=== PATIENT | male | born 1955 | race Caucasian/White ===

== ENCOUNTER 2018-01-06 12:48 | Inpatient (IN) | payer OTHER ==
[~2018-01-06] VITALS: Ht 170.2 cm; Wt 87.4 kg
[~2018-01-06 12:48] MED LIST: ASPIRIN81 M2 PO; FENOFIBRATE160 M1 PO; GABAPENTIN800 MG PO; LISINOPRIL40 MG PO; LOPRESSOR50 MG PO; LOW DOSE ASPIRI81 M1 PO; NORVASC5 MG PO; PRAVACHOL80 MG PO; PRILOSEC20 MG PO; ZITHROMAX Z-PA250 MG PO
[2018-01-06] MEDS ORDERED: PROAIR HFA8.5 GM IH (13:11)
[2018-01-06] MEDS ORDERED: GABAPENTIN300 MG PO (13:11)
[2018-01-06 14:47] LABS: HEMATOCRIT 32.8 % (38.0-50.0); HEMOGLOBIN 10.8 G/DL (12.5-16.6); MCH 27.9 PG (29.0-34.0); MCHC 32.9 G/DL (30.0-36.0); MCV 84.8 FL (86-99); PLATELET COUNT 282 K/uL (156-360); RBC DIS.WIDTH-CV 14.6 % (11.8-14.6); RBC DIS.WIDTH-SD 44.9 % (39-53); RED BLOOD COUNT 3.87 M/uL (4.00-5.50); WHITE BLOOD COUNT 16.6 K/uL (4.1-10.2)
[2018-01-06 14:56] LABS: CHLORIDE 106 mEq/L (99-109); POTASSIUM 3.3 mEq/L (3.7-5.4); SODIUM 140 mEq/L (136-147)
[2018-01-06 14:58] LABS: GLUCOSE 82 mg/dL (70-99); TOTAL PROTEIN 6.7 g/dL (6.4-8.3)
[2018-01-06 15:00] LABS: TOTAL BILIRUBIN 0.5 mg/dL (0.0-1.0)
[2018-01-06 15:02] LABS: ALKALINE PHOSPHATASE 67 IU/L (3-129); CREATININE 0.9 mg/dL (0.6-1.3); GFR ESTIMATE (CALCULATED) > 59 mL/min/ (58.99-99999)
[2018-01-06 15:03] LABS: UREA NITROGEN (BUN) 13 mg/dL (9-23)
[2018-01-06 15:04] LABS: AST (GOT) 8 IU/L (2-34)
[2018-01-06 15:05] LABS: ALT (GPT) 10 IU/L (3-49)
[2018-01-06 15:08] LABS: TROP-I INTERPRETATION NEGATIVE; TROPONIN-I < 0.01 ng/mL (0.0-0.30)
[2018-01-06] MEDS ORDERED: IBUPROFEN800 MG PO (19:52)
[2018-01-06] MEDS ORDERED: PERCOCET 10/1 TABLET PO (19:52)
[2018-01-06] MEDS ORDERED: REQUIP0.5 MG PO (19:52)
[2018-01-06] MEDS ORDERED: DESYREL 150 MG150 MG PO (19:52)
[2018-01-06] MEDS ORDERED: CELEBREX200 MG PO (19:52)
[2018-01-06] MEDS ORDERED: TRAMADOL HCL50 MG PO (19:52)
[2018-01-06 21:15] VITALS: BP 159/93
[2018-01-06 22:38] LABS: APPEARANCE CLEAR ((CLEAR)); BILIRUBIN NEGATIVE; BLOOD NEGATIVE; COLOR STRAW ((YELLOW)); GLUCOSE (STRIP) NEGATIVE; KETONES NEGATIVE; LEUKOCYTES NEGATIVE; NITRITE NEGATIVE; PROTEIN (STRIP) NEGATIVE; SPECIFIC GRAVITY 1.012 (1.000-1.030); UCUL ADDED? NO; UROBILINOGEN 0.2 MG/DL (0.2-1.0)
[2018-01-07 00:02] VITALS: BP 139/81
[2018-01-07 03:42] VITALS: BP 150/82
[2018-01-07 06:05] LABS: HEMATOCRIT 33.7 % (38.0-50.0); HEMOGLOBIN 10.9 G/DL (12.5-16.6); MCH 27.5 PG (29.0-34.0); MCHC 32.3 G/DL (30.0-36.0); MCV 84.9 FL (86-99); PLATELET COUNT 292 K/uL (156-360); RBC DIS.WIDTH-CV 14.6 % (11.8-14.6); RBC DIS.WIDTH-SD 45.1 % (39-53); RED BLOOD COUNT 3.97 M/uL (4.00-5.50); WHITE BLOOD COUNT 17.8 K/uL (4.1-10.2)
[2018-01-07 06:24] LABS: CHLORIDE 98 MEQ/L (99-109); GFR ESTIMATE (CALCULATED) > 59 mL/min/ (58.99-99999); GLUCOSE 94 mg/dL (70-99); POTASSIUM 3.2 MEQ/L (3.7-5.4); SODIUM 137 MEQ/L (136-147); UREA NITROGEN (BUN) 11 mg/dL (9-23)
[2018-01-07 06:56] LABS: ABS NEUTROPHIL COUNT 13.9; ANISOCYTOSIS NONE SEEN; BAND NEUTROPHILS 4.3 % (0-8.0); EOSINOPHIL ABS CT 0.2; EOSINOPHILS 0.9 % (0-5.0); HYPOCHROMASIA 1+; LYMPHOCYTES 13.9 % (15.0-45.0); PLAT.SUFFICIENCY ADEQUATE; POIKILOCYTOSIS 1+; POLYCHROMASIA 1+; SEG.NEUTROPHILS 73.9 % (46.0-76.0)
[2018-01-07 07:33] VITALS: BP 143/74
[2018-01-07 08:50] LABS: INTER. NORMALIZED RATIO 1.9
[2018-01-07 08:52] LABS: PTT 31.1 SEC (25-37)
[2018-01-07 11:33] VITALS: BP 120/74
[2018-01-07 16:19] LABS: TYPE OF FLUID THORACENTESIS
[2018-01-07 17:03] LABS: BODY FLUID GLUCOSE 25 MG/DL; BODY FLUID LDH 3358 IU/L; BODY FLUID PROTEIN 4.9 G/DL
[2018-01-07 17:30] LABS: APPEARANCE SLIGHTLY CLOUDY; BODY FLUID EOSINOPHILS 0 % (0-25); BODY FLUID RBC'S 5000 /MM^3 (0-100); BODY FLUID WBC'S 1653 /MM^3 (0-500); MONONUCLEAR WBC'S 13 %; POLYNUCLEAR WBC'S 87 % (0-25)
[2018-01-07 19:34] VITALS: BP 122/79
[2018-01-08] VITALS (7 sets, daily range): BP systolic 128–182; BP diastolic 72–87
[2018-01-08 18:54] LABS: CHLORIDE 101 MEQ/L (99-109); CREATININE 0.8 MG/DL (0.6-1.3); GFR ESTIMATE (CALCULATED) > 59 mL/min/ (58.99-99999); GLUCOSE 106 mg/dL (70-99); SODIUM 138 MEQ/L (136-147); UREA NITROGEN (BUN) 19 mg/dL (9-23)
[2018-01-08 18:56] LABS: POTASSIUM 4.4 MEQ/L (3.7-5.4)
[2018-01-09 06:41] LABS: CHLORIDE 103 MEQ/L (99-109); CREATININE 0.8 MG/DL (0.6-1.3); GFR ESTIMATE (CALCULATED) > 59 mL/min/ (58.99-99999); GLUCOSE 116 mg/dL (70-99); POTASSIUM 3.8 MEQ/L (3.7-5.4); SODIUM 140 MEQ/L (136-147); UREA NITROGEN (BUN) 21 mg/dL (9-23)
[2018-01-09 07:02] VITALS: BP 155/72
[2018-01-09 14:56] LABS: BODY FLUID PH 7.6 (())
[2018-01-09 15:04] VITALS: BP 128/78
[2018-01-09 23:59] VITALS: BP 137/81
[2018-01-10 06:10] LABS: HEMATOCRIT 29.8 % (38.0-50.0); HEMOGLOBIN 9.4 G/DL (12.5-16.6); MCH 27.2 PG (29.0-34.0); MCHC 31.5 G/DL (30.0-36.0); MCV 86.4 FL (86-99); PLATELET COUNT 309 K/uL (156-360); RBC DIS.WIDTH-CV 14.9 % (11.8-14.6); RBC DIS.WIDTH-SD 47.2 % (39-53); RED BLOOD COUNT 3.45 M/uL (4.00-5.50); WHITE BLOOD COUNT 16.8 K/uL (4.1-10.2)
[2018-01-10 06:31] LABS: CHLORIDE 105 MEQ/L (99-109); CREATININE 0.7 MG/DL (0.6-1.3); GFR ESTIMATE (CALCULATED) > 59 mL/min/ (58.99-99999); GLUCOSE 98 mg/dL (70-99); POTASSIUM 4.2 MEQ/L (3.7-5.4); SODIUM 142 MEQ/L (136-147); UREA NITROGEN (BUN) 22 mg/dL (9-23)
[2018-01-10 07:21] VITALS: BP 164/92
[2018-01-10 15:39] VITALS: BP 141/81
[2018-01-10 22:16] VITALS: BP 120/74
[2018-01-10 23:42] VITALS: BP 119/76
[2018-01-11 06:35] LABS: HEMATOCRIT 28.4 % (38.0-50.0); MCH 27.6 PG (29.0-34.0); MCHC 31.7 G/DL (30.0-36.0); MCV 87.1 FL (86-99); PLATELET COUNT 311 K/uL (156-360); RBC DIS.WIDTH-CV 15.3 % (11.8-14.6); RBC DIS.WIDTH-SD 48.6 % (39-53); RED BLOOD COUNT 3.26 M/uL (4.00-5.50); WHITE BLOOD COUNT 19.1 K/uL (4.1-10.2)
[2018-01-11 07:00] LABS: CHLORIDE 102 MEQ/L (99-109); CREATININE 0.9 MG/DL (0.6-1.3); GFR ESTIMATE (CALCULATED) > 59 mL/min/ (58.99-99999); GLUCOSE 107 mg/dL (70-99); POTASSIUM 4.6 MEQ/L (3.7-5.4); SODIUM 139 MEQ/L (136-147); UREA NITROGEN (BUN) 21 mg/dL (9-23)
[2018-01-11 07:07] VITALS: BP 120/68
[2018-01-11 16:00] VITALS: BP 123/71
[2018-01-11 23:52] VITALS: BP 130/80
[2018-01-12 07:44] VITALS: BP 144/76
[2018-01-12 08:50] LABS: HEMATOCRIT 29.1 % (38.0-50.0); HEMOGLOBIN 9.3 G/DL (12.5-16.6); MCH 27.4 PG (29.0-34.0); MCV 85.6 FL (86-99); PLATELET COUNT 385 K/uL (156-360); RBC DIS.WIDTH-CV 15.3 % (11.8-14.6); RBC DIS.WIDTH-SD 47.1 % (39-53); WHITE BLOOD COUNT 22.1 K/uL (4.1-10.2)
[2018-01-12 13:35] VITALS: BP 118/75
[2018-01-12 16:08] VITALS: BP 133/84
[2018-01-12 23:54] VITALS: BP 131/74
[2018-01-13 05:52] LABS: HEMATOCRIT 29.1 % (38.0-50.0); MCH 26.9 PG (29.0-34.0); MCHC 30.9 G/DL (30.0-36.0); MCV 87.1 FL (86-99); PLATELET COUNT 439 K/uL (156-360); RBC DIS.WIDTH-CV 15.2 % (11.8-14.6); RBC DIS.WIDTH-SD 48.3 % (39-53); RED BLOOD COUNT 3.34 M/uL (4.00-5.50); WHITE BLOOD COUNT 23.5 K/uL (4.1-10.2)
[2018-01-13 07:28] VITALS: BP 130/74
[2018-01-13 16:17] VITALS: BP 140/70
[2018-01-14] VITALS: BP 123/67
[2018-01-14 06:15] LABS: HEMATOCRIT 25.4 % (38.0-50.0); HEMOGLOBIN 7.9 G/DL (12.5-16.6); MCH 27.2 PG (29.0-34.0); MCHC 31.1 G/DL (30.0-36.0); MCV 87.6 FL (86-99); NRBC (%) 0.1 /100 WBC (0-0); PLATELET COUNT 446 K/uL (156-360); RBC DIS.WIDTH-SD 48.7 % (39-53); WHITE BLOOD COUNT 14.8 K/uL (4.1-10.2)
[2018-01-14 07:53] VITALS: BP 106/59
[2018-01-14 15:38] VITALS: BP 126/75
[2018-01-14 23:57] VITALS: BP 123/59
[2018-01-15] VITALS (11 sets, daily range): BP systolic 107–134; BP diastolic 56–79
[2018-01-15 05:49] LABS: HEMOGLOBIN 7.1 G/DL (12.5-16.6); MCHC 30.9 G/DL (30.0-36.0); MCV 87.5 FL (86-99); NRBC (%) 0.2 /100 WBC (0-0); PLATELET COUNT 455 K/uL (156-360); RBC DIS.WIDTH-CV 15.4 % (11.8-14.6); RBC DIS.WIDTH-SD 48.6 % (39-53); RED BLOOD COUNT 2.63 M/uL (4.00-5.50); WHITE BLOOD COUNT 12.1 K/uL (4.1-10.2)
[2018-01-15 08:19] LABS: IRON 21 MCG/DL (35-150); TRANSFERRIN (TIBC) 212.7 mg/dL (215-380); TRANSFERRIN SATUR. 10 % (20-55)
[2018-01-15 08:55] LABS: FERRITIN 331 NG/ML (22-322)
[2018-01-15 09:25] LABS: FOLIC ACID (FOLATE) 7.2 NG/ML (5.0-22.0)
[2018-01-15 11:57] LABS: INTER. NORMALIZED RATIO 1.4
[2018-01-15 21:05] LABS: HEMATOCRIT 30.1 % (38.0-50.0); MCH 27.1 PG (29.0-34.0); MCHC 31.6 G/DL (30.0-36.0); MCV 85.8 FL (86-99); NRBC (%) 0.3 /100 WBC (0-0); PLATELET COUNT 505 K/uL (156-360); RBC DIS.WIDTH-CV 15.1 % (11.8-14.6); RBC DIS.WIDTH-SD 47.6 % (39-53); WHITE BLOOD COUNT 12.4 K/uL (4.1-10.2)
[2018-01-15 21:08] LABS: HEMOGLOBIN 9.5 G/DL (12.5-16.6); RED BLOOD COUNT 3.51 M/uL (4.00-5.50)
[2018-01-16] VITALS: BP 132/69
[2018-01-16 05:58] LABS: HEMATOCRIT 27.3 % (38.0-50.0); HEMOGLOBIN 8.7 G/DL (12.5-16.6); MCH 27.4 PG (29.0-34.0); MCHC 31.9 G/DL (30.0-36.0); MCV 85.8 FL (86-99); NRBC (%) 0.3 /100 WBC (0-0); PLATELET COUNT 457 K/uL (156-360); RBC DIS.WIDTH-CV 15.3 % (11.8-14.6); RBC DIS.WIDTH-SD 47.8 % (39-53); RED BLOOD COUNT 3.18 M/uL (4.00-5.50); WHITE BLOOD COUNT 10.5 K/uL (4.1-10.2)
[2018-01-16 07:49] VITALS: BP 145/72
[2018-01-16 16:00] VITALS: BP 130/72
[2018-01-17 00:59] VITALS: BP 131/78
[2018-01-17 06:43] LABS: HEMATOCRIT 28.4 % (38.0-50.0); HEMOGLOBIN 8.9 G/DL (12.5-16.6); MCHC 31.3 G/DL (30.0-36.0); MCV 86.1 FL (86-99); NRBC (%) 0.3 /100 WBC (0-0); PLATELET COUNT 545 K/uL (156-360); RBC DIS.WIDTH-CV 15.1 % (11.8-14.6)
[2018-01-17 06:56] LABS: PLAT.SUFFICIENCY INCREASED
[2018-01-17 07:21] VITALS: BP 139/72
[2018-01-17 15:20] VITALS: BP 139/71
[2018-01-17 23:55] VITALS: BP 145/70
[2018-01-18 07:46] VITALS: BP 134/79
[2018-01-18 08:16] LABS: HEMATOCRIT 30.1 % (38.0-50.0); HEMOGLOBIN 9.5 G/DL (12.5-16.6); MCH 27.5 PG (29.0-34.0); MCHC 31.6 G/DL (30.0-36.0); MCV 87.2 FL (86-99); NRBC (%) 0.3 /100 WBC (0-0); PLATELET COUNT 502 K/uL (156-360); RBC DIS.WIDTH-CV 14.8 % (11.8-14.6); RBC DIS.WIDTH-SD 47.1 % (39-53); RED BLOOD COUNT 3.45 M/uL (4.00-5.50); WHITE BLOOD COUNT 10.8 K/uL (4.1-10.2)
[2018-01-18] MEDS ORDERED: PANTOPRAZOLE SO40 MG PO (11:55)
[2018-01-18] MEDS ORDERED: AUGMENTIN875 MG PO (11:55)
[2018-01-18] MEDS ORDERED: LACTOBACILLUS1 EACH PO (11:58)
== END 2018-01-18 13:28 | disposition home or self-care (01) | DRG 177 ==
LOC: EME 12:48 → EDOF 19:59 → 5SOUTH 19:59 → ENRESERV 01-10 12:45 → CANRESERV 01-10 12:49 → ENRESERV 01-10 13:15 → CANRESERV 01-10 17:38 → ENRESERV 01-10 17:38 → CANRESERV 01-10 22:01 → ENRESERV 01-10 22:01 → ENPENDDIS 01-18 12:15 → 5SOUTH 01-18 13:28
PROVIDERS: Emergency Medicine; Hospitalist; Internal Medicine Gastroenterology; Physician Assistant Medical; Radiology Diagnostic Radiology; Thoracic Surgery (Cardiothoracic Vascular Surgery)
PROC: 0W9B30Z Drainage of Left Pleural Cavity with Drainage Device, Percutaneous Approach (ICD-10-PCS; principal; 2018-01-07)
PROC: 30233N1 Transfusion of Nonautologous Red Blood Cells into Peripheral Vein, Percutaneous Approach (ICD-10-PCS; 2018-01-15)
PROC: 0DB68ZX Excision of Stomach, Via Natural or Artificial Opening Endoscopic, Diagnostic (ICD-10-PCS; 2018-01-16)
DX: J86.9 Pyothorax without fistula (principal); J91.8 Pleural effusion in other conditions classified elsewhere; J18.9 Pneumonia, unspecified organism; K92.1 Melena; D62 Acute posthemorrhagic anemia; R09.02 Hypoxemia; J98.11 Atelectasis; J40 Bronchitis, not specified as acute or chronic; K21.9 Gastro-esophageal reflux disease without esophagitis; I10 Essential (primary) hypertension; E78.5 Hyperlipidemia, unspecified; K44.9 Diaphragmatic hernia without obstruction or gangrene; K29.60 Other gastritis without bleeding; E87.6 Hypokalemia
CPT/HCPCS: 32557; 71045; 71046; 71250; 71275; 80048; 80053; 81003; 82607; 82728; 82746; 82945; 83540; 83605; 83615 91; 83735; 83986 90; 84157; 84466; 84484; 85025; 85027; 85379; 85610; 85730; 86850; 86900; 86901; 86920; 87040; 87070; 87075; 87076; 87205; 87449; 88305; 88342 TC; 89051; 93005; 94640; 94669; 94799; 99281; 99285; C1729; C1769; C9113; J0131; J0295; J0330; J0456; J0692; J0696; J1170; J1644; J1885; J1940; J1956; J2250; J2270; J2543; J2710; J2930; J3010; J3480; J7030; J7050; J7120; J7643; P9016